=== PATIENT | male | born 1995 | race Caucasian/White ===

== ENCOUNTER 2022-07-29 13:16 | Emergency (ER) | payer MEDICAID, SELFPAY ==
--- NOTE | ~2022-07-29 | XR_ITS ---
EXAMINATION: XR KNEE, LEFT CLINICAL INFORMATION: Pain and swelling. Injury. COMPARISON: None TECHNIQUE: Four views of the left knee. FINDINGS: No fracture or subluxation. Compartmental joint spaces are maintained. Moderate joint effusion. Diffuse soft tissue edema. XR/XR knee LT 4V IMPRESSION: No fracture or malalignment. Moderate joint effusion. Diffuse soft tissue edema.
[2022-07-29 13:27] VITALS: BP 149/83; PULSE 70; RESP 16; TEMP 36.7; O2SAT 97; BMI 29.2
--- NOTE | 2022-07-29 13:27 | ED.LOWEXIN ---
HPI - Extremity Injury (Lower) General Chief Complaint: Extremity Injury, Lower <CIRILO Baltazar Last Filed: 07/29/22 13:32> Stated Complaint: L knee pain/Cant feel foot <CIRILO Baltazar Last Filed: 07/29/22 13:32> Time Seen by Provider: 07/29/22 15:08 <CIRILO Baltazar Last Filed: 07/29/22 13:32> Source: patient <CIRILO Oakley Last Filed: 07/29/22 15:43> Mode of arrival: ambulatory <CIRILO Oakley Last Filed: 07/29/22 15:43> Limitations: no limitations <CIRILO Oakley Last Filed: 07/29/22 15:43> History of Present Illness HPI Narrative: 27 yo male presenting to the ER for evaluation with left knee pain and swelling after an injury [place] [employer] park on 07[place]25. He states he was seen at [facility] that day, told he sprained the knee and to go to a walk in Ortho. He states swelling is 3x worse. they did provide him knee immobilizer and crutches although he reports no symptomatic relief. He has also been taking Motrin Tylenol no symptomatic relief. He denies any new injuries, lower extremity edema or calf tenderness, shortness of breath or cough, dyspnea on exertion or chest pain or any other injuries complaints or concerns at this time. <CIRILO Oakley Last Filed: 07/29/22 15:43> MD complaint: knee injury and fall <CIRILO Oakley Last Filed: 07/29/22 15:43> Onset (ago): day(s) (4) <CIRILO Oakley Last Filed: 07/29/22 15:43> Injury: Left: knee <CIRILO Oakley Last Filed: 07/29/22 15:43> Type of Injury: other ( Twist and fall injury) <CIRILO Oakley Last Filed: 07/29/22 15:43> [facility] [place] <CIRILO Oakley Last Filed: 07/29/22 15:43> Severity: severe <CIRILO Oakley Last Filed: 07/29/22 15:43> Severity scale (1-10): >10 <CIRILO Oakley Last Filed: 07/29/22 15:43> Relieving factors: nothing <CIRILO Oakley Last Filed: 07/29/22 15:43> Exacerbating factors: weight bearing, movement and palpation <CIRILO Oakley Last Filed: 07/29/22 15:43> Context: fall <CIRILO Oakley Last Filed: 07/29/22 15:43> Associated symptoms: swelling and unable to bear weight <CIRILO Oakley Last Filed: 07/29/22 15:43> Other symptoms: none <CIRILO Okaley Last Filed: 07/29/22 15:43> Treatments prior to arrival: heat therapy and other ( knee immobilizers and crutches) <CIRILO Oakley Last Filed: 07/29/22 15:43> Related Data Home Medications: Previous Rx's Medication Instructions Recorded ibuprofen 800 mg tablet 800 mg PO Q8H PRN pain #14 tabs 07/29/22 oxycodone 5 mg tablet 5 mg PO Q6H PRN pain #14 tabs 07/29/22 <CIRILO Baltazar Last Filed: 07/29/22 13:32> Allergies/Adverse Reactions: Allergies Allergy/AdvReac Type Severity Reaction Status Date / Time amoxicillin [AMOXICILLIN] Allergy Unknown UNKNOWN Verified 07/29/22 13:30 Penicillins [PENICILLINS] Allergy Unknown UNKNOWN Verified 07/29/22 13:30 <CIRILO Baltazar Last Filed: 07/29/22 13:32> Review of Systems Review of Systems: Constitutional : No Weight loss, No Fever, No Chills, No Night Sweats, No Fatigue, No Malaise ENT/Mouth : No Hearing loss, No Ear Pain, No Nasal Congestion, No Sinus Pain, No Hoarseness, No sore throat, No Rhinorrhea, No Swallowing Difficulty Eyes: No Eye Pain, No Swelling, No Redness, No Foreign Body, No Discharge, No Vision Changes Cardiovascular : No Chest Pain, No SOB, No Dyspnea on Exertion, No Orthopnea, No Edema, No Palpitations Respiratory : No Cough, No Sputum, No Wheezing, No Smoke Exposure, No Dyspnea Gastrointestinal : No Nausea, No Vomiting, No Diarrhea, No Constipation, No abdominal Pain, No Hematochezia, No Melena Genitourinary : no irregular bleeding, No Dysuria, No Urinary Frequency, No Hematuria, No Urinary Incontinence, No Urgency, No Flank Pain, No Urinary Flow Changes, No Hesitancy Musculoskeletal : + left knee joint pain /swelling, No Myalgias Skin : No Skin Lesions, No rash Neuro : No Weakness, No Numbness, No Paresthesias, No Loss of Consciousness, No Dizziness, No Headache Psych : No Anxiety/Panic, No Depression, No SI/HI/AH/VH, No Social Issues, Heme/Lymph: No Bruising, No Bleeding,No Lymphadenopathy Endocrine : No Polyuria, No Polydipsia, No Temperature Intolerance <CIRILO Oakley - Last Filed: 07/29/22 15:43> Yes all other systems are reviewed and are negative <CIRILO Oakley - Last Filed: 07/29/22 15:43> [facility] Past Medical History Attestation statement: The following information was validated with the patient. <CIRILO Oakley - Last Filed: 07/29/22 15:43> Source: old records reviewed and nursing notes reviewed <CIRILO Oakley - Last Filed: 07/29/22 15:43> Social History Social History: Social History Advance Directives: No Advance Directives Information Provided: No <CIRILO Baltazar - Last Filed: 07/29/22 13:32> Physical Exam Vital Signs: Vital Signs: Last Vital Signs Temp 98.0 F 07/29/22 13:27 Pulse 70 07/29/22 13:27 Resp 16 07/29/22 13:27 BP 149/83 H 07/29/22 13:27 Pulse Ox 97 07/29/22 13:27 O2 Del Method 07/29/22 13:27 BMI result Body Mass Index 29.2 <CIRILO Baltazar - Last Filed: 07/29/22 13:32> Vital Signs: Last Vital Signs Temp 98.0 F 07/29/22 13:27 Pulse 70 07/29/22 13:27 Resp 16 07/29/22 13:27 BP 149/83 H 07/29/22 13:27 Pulse Ox 97 07/29/22 13:27 O2 Del Method 07/29/22 13:27 BMI result Body Mass Index 29.2 vital signs have been reviewed as normal and appeared to be correct. Blood pressure normal. Heart rate normal. Respiration rate normal. Temperature normal. Oxygen saturation normal. <CIRILO Oakley - Last Filed: 07/29/22 15:43> Appearance: Alert. Oriented X3. No acute distress. Head: Normal external exam. Normocephalic. Atraumatic. Eyes: PERRLA. EOMI. Conjunctiva and sclera normal. Eyelids normal. ENT: Pharynx normal. Uvula midline. Moist mucous membranes. No lesions/ulcerations or masses noted on the tongue. Normal voice. No trismus noted. No drooling noted. No muffled voice noted. Neck: Normal inspection. Neck supple. FROM. No adenopathy. Thyroid Normal. No tracheal deviation noted. No crepitus is noted. No meningeal signs. No neck mass noted. No signs of trauma noted. CVS: Normal heart rate and rhythm. Heart sound normal. Pulses normal throughout. No murmurs/rales/gallops. Respiratory: No respiratory distress. Painless inspiration. Breath sounds normal. No wheezes/rales/rhonchi noted. Chest nontender. No crepitus is noted. No accessory muscle usage noted or decreased air movement noted. No signs of trauma. Back: Full range of motion noted. Nontender. No signs of trauma. Patient neuro intact bilaterally and distally on all 4 extremities. Patient's reflexes intact bilaterally and distally on all 4 extremities. No rashes/lesion/induration/fluctuance or signs of infection noted. Skin: Skin warm and dry. Normal skin color. Normal skin turgor. No rashes/lesions/lacerations noted. Extremities: No lower extremity edema. No calf tenderness is noted. patient moderate tenderness palpation and obvious joint effusion to the left knee at the medial aspect with limited range of motion mainly flexion patient rather keeps and extension for comfort due to pain/ swelling and joint effusion. No obvious ligamentous or tendon injury noted. Otherwise all other extremities exhibit normal range of motion nontender. No erythema noted. No signs of infection. Neuro: Oriented X 3. No motor deficit. No sensory deficit. Reflexes normal. Normal steady gait. No focal neuro deficits noted. CN's II-XII intact bilaterally? Vascular: + radial pulses/+ 2 distal pedal pulses/+2 dorsalis pedis b/l. Normal cap refill. No cyanosis noted to upper extremity nails and lower extremity toes nails. <CIRILO Oakley - Last Filed: 07/29/22 15:43> Course Course Course Narrative: RME - 27 yo male presenting to the ER for evaluation with left knee pain and numbness of the left lower leg after an [place] [id number] [address] [place] on 07[place]25. He states he was seen at [facility] that day, told he sprained the knee and go to a walk in Ortho. He states swelling is 3x worse and he can't feel his lower leg or foot. Foot is warm with some movement of the toes. 2+ DP pulse. Reports decreased sensation of the foot and leg. Repeat XR ordered. Will need more thorough exam in treatment room. <CIRILO Baltazar - Last Filed: 07/29/22 13:32> Reevaluation(s) Reevaluation #1: Patient noted to have an obvious joint effusion. No other deformities are noted. No ecchymosis, abrasion, or palpable chords or cycts. No abscess, signs of infection noted. no obvious ligamentous or tendon injury noted. Although exam limited due to patient's pain/ swelling/ joint effusion. Not consistent muscle rupture. Able to lift and hold knee off stretcher bed. 2+ popliteal, DP and pedal pulse. No skin discoloration noted. No signs of septic joint. No signs of infection. Calf soft, supple and non tenderness.? IMP/Plan: Likely strain With joint effusion. No erythema, edema, or ecchymosis of knee. Xray of knee negative for any acute fractures only revealed moderate joint effusion. Given patient able to lift and hold leg above stretcher - Patellar tendon rupture less concerning. Patient most likely has strain of knee, and ? internal knee injury. Will be given knee immobilizer for support and information on orthopedic clinics for follow up. Patient understands and agrees with plan. Return precautions advised. <CIRILO Oakley - Last Filed: 07/29/22 15:43> Time: 15:42 <CIRILO Oakley - Last Filed: 07/29/22 15:43> Medical Decision Making Independent Interpretation I performed an independent interpretation of an: Plain X-Ray <CIRILO Oakley - Last Filed: 07/29/22 15:43> Interpretation: FINDINGS: No fracture or subluxation. Compartmental joint spaces are maintained. Moderate joint effusion. Diffuse soft tissue edema.? XR/XR knee LT 4V IMPRESSION: No fracture or malalignment. Moderate joint effusion. Diffuse soft tissue edema. <CIRILO Oakley - Last Filed: 07/29/22 15:43> Radiology Impression Discussion of test interpretation with radiology: I have reviewed the radiologist's reading. <CIRILO Oakley - Last Filed: 07/29/22 15:43> Discharge Plan Discharge Clinical Impression: Left knee sprain, Effusion of knee joint, left <CIRILO Baltazar - Last Filed: 07/29/22 13:32> Patient Disposition: Home, Self-Care <CIRILO Baltazar Last Filed: 07/29/22 13:32> Instructions: Knee Sprain (ED), Swollen Knee Joint (ED), Joint Aspiration (DC) <CIRILO Baltazar - Last Filed: 07/29/22 13:32> Prescriptions: New ibuprofen 800 mg tablet 800 mg PO Q8H PRN (Reason: pain) Qty: 14 0RF oxycodone 5 mg tablet 5 mg PO Q6H PRN (Reason: pain) Qty: 14 0RF Rx Instructions: Partial Fill upon patient request. <CIRILO Baltazar Last Filed: 07/29/22 13:32> Referrals: [facility] [Provider Group] (If symptoms persist you can call to make a follow-up appointment within the next few weeks) <CIRILO Baltazar Last Filed: 07/29/22 13:32>
[2022-07-29] MEDS: oxyCODONE HCl Immed Release 5 MG TABLET PO (15:39)
[2022-07-29] MEDS: Ibuprofen 800 MG TABLET PO (15:39)
[2022-07-29 15:43] VITALS: BP 140/79; PULSE 80; RESP 16; TEMP 36.7; O2SAT 97
== END 2022-07-29 15:46 | disposition home or self-care (01) ==
PROVIDERS: Emergency Provider Emergency Medicine
DX: S89.92XA Unspecified injury of left lower leg, initial encounter (principal); M25.462 Effusion, left knee; Y93.44 Activity, trampolining; Y93.9 Activity, unspecified; Y92.9 Unspecified place or not applicable; Y99.9 Unspecified external cause status
CPT/HCPCS: 73564; 99283

== ENCOUNTER → 2022-08-12 10:07 | Outpatient (BNVA) | payer MEDICAID, SELFPAY | PROVIDERS: Visit Provider Physician Assistant | DX: M23.92 Unspecified internal derangement of left knee (principal) | CPT/HCPCS: 99202 ==

== ENCOUNTER 2023-07-09 10:43 | Emergency (ER) | payer OTHER, SELFPAY ==
[2023-07-09 11:45] VITALS: BP 130/72; PULSE 75; RESP 16; TEMP 36.3; O2SAT 98
== END 2023-07-09 13:11 | disposition left against medical advice (07) ==
PROVIDERS: Emergency Provider Emergency Medicine
DX: S61.211A Laceration without foreign body of left index finger without damage to nail, initial encounter (principal); W45.8XXA Other foreign body or object entering through skin, initial encounter; Y93.9 Activity, unspecified; Y92.9 Unspecified place or not applicable; Y99.9 Unspecified external cause status
CPT/HCPCS: 99281